=== PATIENT | male | born 1965 | race Caucasian/White ===

== ENCOUNTER → 2020-10-23 | Outpatient (CLI) | payer OTHER | LOC: M.LAB 11:54 | PROVIDERS: ATTEND Surgery | DX: Z01.812 Encounter for preprocedural laboratory examination (principal); N18.6 End stage renal disease; Z20.828 Contact with and (suspected) exposure to other viral communicable diseases ==

== ENCOUNTER → 2020-10-28 | Day surgery (SDC) | payer OTHER ==
[~2020-10-28] MED LIST: LIPITOR 20 MG T20 M1 PO; MELATONIN5 MG SUBLING; NORCO 10-325 T1 EACH PO; NORVASC10 MG PO; SODIUM BICARBO650 M3 PO; VICTOZA 3-0.6 MG/0.1 SUBQ; VITAMIN D250 MC1 PO
--- NOTE | ~2020-10-28 | OP ---
[facility] [address] [place] [address] OPERATIVE REPORT Name: ANNE-MARIE LEUNG Room: [facility] M.R.#: [id number] Admission: 10/28/20 Attend Phys: Ramo Borges Discharge: Date of : 69 Report #: [id number] THIS REPORT FOR: cc: Nanette Damian MD, Emily G. MD ~ Ramo Borges MD DATE OF SERVICE: 10/28/2020 PREOPERATIVE DIAGNOSIS: End-stage renal disease. POSTOPERATIVE DIAGNOSIS: End-stage renal disease. OPERATION: 1. Laparoscopic placement of tunneled intraperitoneal catheter. 2. Laparoscopic omentopexy. SURGEON: Ramo Borges MD. ANESTHESIA: General. ESTIMATED BLOOD LOSS: Minimal. SPECIMEN: None. DESCRIPTION OF PROCEDURE: After informed consent was obtained, the patient was brought to the operating room and placed supine. SCDs were placed and working, preoperative antibiotics were administered, general anesthesia was induced. The abdomen was prepped and draped in the usual sterile fashion. A 5 mm incision was made in the left upper quadrant. A 5 mm trocar was placed under direct vision. Pneumoperitoneum was established. Left-sided 5 mm trocar was placed. The omentum was grasped and brought up to the right upper quadrant. A PMI suture passer with a 2-0 Vicryl suture was used to perform the omentopexy. It was brought through the skin and the omentum and then brought out through the skin. Two of these sutures were placed. An 8 mm trocar was placed in the left rectus sheath. A 62 cm Covidien catheter was placed through the trocar. The trocar was removed. The internal cuff was placed in the rectus sheath and the catheter was tunneled to the left upper quadrant of the abdomen. Catheter flushed easily with 750 mL of heparinized saline. It drained easily as well. The ports were removed under direct vision. The skin was closed with 4-0 Monocryl. Incisions were sealed with Dermabond. COMPLICATIONS: [place] [address] OPERATIVE REPORT Name: ANNE-MARIE LEUNG Room: [facility].#: [id number] Admission: 10/28/20 Attend Phys: Ramo Borges Discharge: Date of : 69 Report #: [id number] DISPOSITION: The patient was taken to recovery in satisfactory condition. By: [id number] Borges MD /nt
[2020-10-28 07:12] LABS: HEMATOCRIT 35.7 % (42.0-52.0); HEMOGLOBIN 11.8 gm/dL (14.0-18.0); MCH 29.1 pg (26.0-34.0); MCHC 33.1 g/dL (28.0-37.0); MCV 87.8 fL (80.0-100.0); MPV 9.6 fl. (7.2-11.1); RBC 4.07 mil/uL (4.50-6.00); WBC 10.7 thou/uL (4.0-11.0)
[2020-10-28 07:19] LABS: CALCIUM 8.4 mg/dL (8.5-10.1); CREATININE 4.6 mg/dL (0.6-1.3); POTASSIUM 4.2 mmol/L (3.5-5.1)
--- NOTE | 2020-10-28 10:47 | EKG ---
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
== END | disposition home or self-care (01) ==
LOC: M.SUR 06:18
PROVIDERS: ATTEND Surgery
DX: I12.0 Hypertensive chronic kidney disease with stage 5 chronic kidney disease or end stage renal disease (principal); E11.22 Type 2 diabetes mellitus with diabetic chronic kidney disease; N18.6 End stage renal disease; Z98.890 Other specified postprocedural states; Z79.899 Other long term (current) drug therapy; Z88.0 Allergy status to penicillin

== ENCOUNTER → 2021-08-04 | Day surgery (SDC) | payer OTHER, MEDICARE ==
[~2021-08-04] MED LIST changes: +COLACE100 MG PO; +NORCO5 PO; +RENAL-VITE TAB0.8 MG PO
--- NOTE | ~2021-08-04 | OP ---
[facility] [address] [place] [address] OPERATIVE REPORT Name: ANNE-MARIE LEUNG Room: [facility] M.R.#: [id number] Admission: 08/04/21 Attend Phys: Ramo Borges Discharge: Date of : 69 Report #: [id number] THIS REPORT FOR: cc: Nanette Damian MD, Emily G. MD Patterson, Jonathan D. MD ~ DATE OF SURGERY: 08/04/2021 PREOPERATIVE DIAGNOSIS: End-stage renal disease with infected peritoneal catheter. POSTOPERATIVE DIAGNOSIS: End-stage renal disease with infected peritoneal catheter. OPERATION: 1. Diagnostic laparoscopy. 2. Revision of peritoneal catheter with removal of obstructive material. SURGEON: Ramo Borges MD ANESTHESIA: General. ESTIMATED BLOOD LOSS: Minimal. SPECIMENS: None. DESCRIPTION OF PROCEDURE: After informed consent was obtained, the patient was brought to the operating room and placed supine. SCDs were placed and working, preoperative antibiotics were administered, general anesthesia was induced. The abdomen was prepped and draped in the usual sterile fashion. A 5 mm incision was made in the left upper quadrant. A 5 mm trocar was placed under direct vision. Pneumoperitoneum was established. A left-sided 5 mm trocar was placed. I examined the abdomen. There was no evidence of peritonitis. There was no purulence in the abdomen. The exit site of the catheter was cut with an elliptical 2 cm incision. Cautery dissection was made down through the subcutaneous tissue. I was able to free up the external cuff. The catheter was then cut just distal to the external cuff. I then attached it to a new catheter using a connector. The catheter was then tunneled to the left upper quadrant of the abdomen to come out through a new site. The incisions were then closed with 4-0 Monocryl. Catheter flushed easily with heparinized saline and drained easily as well. The ports were removed. The skin was closed with 4-0 Monocryl. Incisions were dressed with Steri-Strips [place] [address] OPERATIVE REPORT Name: ANNE-MARIE LEUNG Room: [facility].#: [id number] Admission: 08/04/21 Attend Phys: Ramo Borges Discharge: Date of : 69 Report #: [id number] COMPLICATIONS: None. DISPOSITION: The patient was taken to recovery in satisfactory condition. By: [id number] Borges MD /fritz
[2021-08-04 09:41] LABS: HEMATOCRIT 43.2 % (42.0-52.0); HEMOGLOBIN 14.4 gm/dL (14.0-18.0); MCH 28.3 pg (26.0-34.0); MCHC 33.3 g/dL (28.0-37.0); MPV 9.4 fl. (7.2-11.1); RBC 5.08 mil/uL (4.50-6.00); RDW-CV 13.3 % (10.5-14.5); WBC 10.7 thou/uL (4.0-11.0)
[2021-08-04 09:51] LABS: CALCIUM 8.8 mg/dL (8.5-10.1); CREATININE 3.9 mg/dL (0.6-1.3); POTASSIUM 4.1 mmol/L (3.5-5.1)
--- NOTE | 2021-08-04 11:20 | EKG ---
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[facility] : 1965 Requested By: En Acosta Order Number: [id number] MD: Ritesh Rodriguez Measurements Intervals [place] Rate: 63 P: 39 MO: 147 QRS: 32 QRSD: 96 T: 31 QT: 420 QTc: 430 Interpretive Statements Sinus rhythm Abnormal R-wave progression, early transition Compared to ECG 10/28/2020 07:42:26 No significant changes Electronically Signed On 08-04-2021 11:20:13 CDT by Ritesh Rodriguez [email or web address] <ELECTRONICALLY SIGNED> By: Ritesh Rodriguez MD, [facility] 08/04/21 1120 1018 [id number] Ritesh Rodriguez MD, [facility] /EPI
== END | disposition home or self-care (01) ==
LOC: M.SUR 09:17
PROVIDERS: Anesthesiology; ATTEND Surgery
DX: T85.71XA Infection and inflammatory reaction due to peritoneal dialysis catheter, initial encounter (principal); N18.6 End stage renal disease; Z98.890 Other specified postprocedural states; Z79.899 Other long term (current) drug therapy; Z20.822 Contact with and (suspected) exposure to COVID-19; Z88.0 Allergy status to penicillin; Z79.891 Long term (current) use of opiate analgesic; Z88.8 Allergy status to other drugs, medicaments and biological substances; Y83.8 Other surgical procedures as the cause of abnormal reaction of the patient, or of later complication, without mention of misadventure at the time of the procedure